=== PATIENT | male | born 1995 | race Caucasian/White ===

== ENCOUNTER 2017-02-02 21:52 | Emergency (ER) | payer BC, OTHER ==
[~2017-02-02] VITALS: Ht 167.6 cm; Wt 63.8 kg
[2017-02-02 22:03] VITALS: TEMP 36.9; Ht 167.6 cm; Wt 63.8 kg
[2017-02-02 22:05] VITALS: O2SAT 99
[2017-02-02 22:31] VITALS: BP 127/78
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
[2017-02-02 23:19] VITALS: PULSE 74; O2SAT 98
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
== END 2017-02-02 23:22 | disposition home or self-care (01) ==
LOC: C.EDB 21:54 → C.EDA 23:22
DX: Z04.1 Encounter for examination and observation following transport accident (principal)